=== PATIENT | female | born 1980 | race Caucasian/White ===

== ENCOUNTER 2019-01-06 08:54 | Inpatient (IN) | payer OTHER ==
[2019-01-06] MEDS ORDERED: Water For Irrigation,Sterile 1,000 ML Container IRR PRN (09:23)
[2019-01-06] MEDS ORDERED: Sodium Chloride 0.9% 10 ML Syringe FLUSH PRN (09:23)
[2019-01-06] MEDS ORDERED: Carboprost Tromethamine 250 MCG/1 ML Amp IM PRN (09:23)
[2019-01-06] MEDS ORDERED: Butorphanol 1 MG/ML SDV IVPUSH PRN (09:23)
[2019-01-06] MEDS ORDERED: Sodium Chloride 0.9% 2.5 ML Syringe FLUSH PRN (09:23)
[2019-01-06] MEDS ORDERED: Lidocaine 1% 50 ML MDV INJECT PRN (09:23)
[2019-01-06] MEDS ORDERED: Misoprostol 200 MCG Tab PO PRN (09:23)
[2019-01-06] MEDS ORDERED: Sodium Chloride 0.9% 10 ML SDV IV PRN (09:23)
[2019-01-06] MEDS ORDERED: Tranexamic Acid 1,000 MG in Sodium Chloride 0.9% 100 ML IV PRN (09:23)
[2019-01-06] MEDS ORDERED: Methylergonovine 0.2 MG/1 ML Amp IM PRN (09:23)
[2019-01-06] MEDS ORDERED: Nalbuphine 10 MG/1 ML Vial IVPUSH PRN (09:23)
[2019-01-06] MEDS ORDERED: Oxytocin/0.9 % Sodium Chloride 30 UNIT/500 ML BAG IV SCH (09:30)
[2019-01-06] MEDS: Lactated Ringers 1,000 ML IV SCH ×3 (11:12→12:34)
[2019-01-06] MEDS ORDERED: Ropivacaine HCl/PF 100 ML ONE (12:18)
[2019-01-06] MEDS ORDERED: fentaNYL 100 MCG/2 ML SDV ONE (12:18)
--- NOTE | 2019-01-06 12:38 | PCM.PREANE ---
Preanesthetic Assessment - Anesthesia/Transfusion/Family Hx Anesthesia History: Prior Anesthesia Without Reaction Transfusion History: No Prior Transfusion(s) - Physical Assessment Height: 1.68 m Weight: 97.069 kg ASA Class: 1 Airway Class: Mallampati = 1 ROM/Head Extension: Full - Lab Values: Laboratory Last Values WBC 15.92 K/uL (4.0-11.0) H 01/06/19 09:36 RBC 4.56 M/uL (4.30-5.90) 01/06/19 09:36 Hgb 12.9 g/dL (12.0-16.0) 01/06/19 09:36 Hct 39.8 % (36.0-46.0) 01/06/19 09:36 MCV 87.3 fL (80.0-98.0) 01/06/19 09:36 MCH 28.3 pg (27.0-32.0) 01/06/19 09:36 MCHC 32.4 g/dL (31.0-37.0) 01/06/19 09:36 RDW Std Deviation 48.5 fl (28.0-62.0) 01/06/19 09:36 RDW Coeff of Sylvia 15 % (11.0-15.0) 01/06/19 09:36 Plt Count 206 K/uL (150-400) 01/06/19 09:36 MPV 11.50 fL (7.40-12.00) 01/06/19 09:36 Nucleated RBC % 0.0 /100WBC 01/06/19 09:36 Nucleated RBCs # 0 K/uL 01/06/19 09:36 Blood Type O POSITIVE 01/06/19 09:36 Antibody Screen NEGATIVE 01/06/19 09:36 - Allergies Allergies/Adverse Reactions: Allergies Allergy/AdvReac Type Severity Reaction Status Date / Time Sulfa (Sulfonamide Allergy Hives Verified 01/06/19 09:22 Antibiotics) - Acknowledgements Anesthesia Type Planned: Epidural Pt an Appropriate Candidate for the Planned Anesthesia: Yes Alternatives and Risks of Anesthesia Discussed w Pt/Guardian: Yes Pt/Guardian Understands and Agrees with Anesthesia Plan: Yes PreAnesthesia Questionnaire HEENT History: Reports: Impaired Vision [employer] History: Reports: - Past Surgical History HEENT Surgical History: Reports: None - HOME MEDS Home Medications: Home Meds PNV95/Ferrous Fumarate/FA [ Tablet] 1 each PO 01/06/19 [History] - CURRENT (IN HOUSE) MEDS Current Meds: Current Medications Butorphanol Tartrate (Stadol) 1 mg IVPUSH Q1H PRN PRN Reason: Pain Carboprost Tromethamine (Hemabate Ds) 250 mcg IM ASDIRECTED PRN PRN Reason: Post Hemorrhage Lactated Ringer's (Ringers, Lactated) 1,000 mls @ 150 mls/hr IV ASDIRECTED [facility] Last Admin: 01/06/19 12:34 Dose: 150 mls/hr Oxytocin/Sodium Chloride (Oxytocin 30 Unit/500 Ml-Ns) 30 unit in 500 mls @ 999 mls/hr IV TITRATE [facility] Tranexamic Acid 1,000 mg/ (Sodium Chloride) 110 mls @ 660 mls/hr IV ONETIME PRN PRN Reason: Bleeding Lidocaine HCl (Xylocaine 1%) 50 ml INJECT ONETIME PRN PRN Reason: Laceration repair Methylergonovine Maleate (Methergine) 0.2 mg IM ASDIRECTED PRN PRN Reason: Post Hemorrhage Misoprostol (Cytotec) 200 mcg PO ONETIME PRN PRN Reason: Post Hemorrhage Nalbuphine HCl (Nubain) 10 mg IVPUSH Q1H PRN PRN Reason: Pain (severe 7-10) Sodium Chloride (Saline Flush) 10 ml FLUSH ASDIRECTED PRN PRN Reason: Keep Vein Open Sodium Chloride (Saline Flush) 2.5 ml FLUSH ASDIRECTED PRN PRN Reason: Keep Vein Open Sodium Chloride (Normal Saline) 10 ml IV ASDIRECTED PRN PRN Reason: IV Use Sterile Water (Sterile Water For Irrigation) 1,000 ml IRR ASDIRECTED PRN PRN Reason: delivery Discontinued Medications Fentanyl (Sublimaze) Confirm Administered Dose 100 mcg .ROUTE .STK-MED ONE Stop: 01/06/19 12:19 Ropivacaine (Naropin 0.2%) Confirm Administered Dose 100 mls @ as directed .ROUTE .STK-MED ONE Stop: 01/06/19 12:19
--- NOTE | 2019-01-06 12:44 | PCM.PRNOTE ---
- Free Text/Narrative Note: Anes Note 1220 Patient requests epidural for L&D. Sittting position, level L3-L4 midline approach. Sterile technique, chloraprep scrub to lumbare area. Sterile fenstrated drape applied. Epidural space easily achieved single attempt with ease using TOM technique. TOM at 4 cm. Cath threaded 5 cm with ease. Sterile dressing applied. 1228 Text dose 1230 Load 10 cc 0.2% ropivicaine with 1 mcg cc fentayl in slow divided doses. 1235 Pump started with same solution at 8 cc hr with 6 cc q 20 min prn bolus. Tolerated well Time with patient 1220 1300 Minesh Charlton ADMINISTRATIVE SECRETARY
--- NOTE | 2019-01-06 15:43 | PCM.OPNOTE ---
<Karen Key - Last Filed: 01/06/19 15:47> - General Post-Op/Procedure Note Condition: Good Free Text/Narrative:: Dictation [id number] <Edith Jin - Last Filed: 01/06/19 15:51> - General Post-Op/Procedure Note Date of Surgery/Procedure: 01/06/19 Operative Procedure(s): . Repair of 2nd degree laceration Findings: of liveborn male . Apgars 9/9. Weight pending. 3vc. Placenta intact. Pre Op Diagnosis: 39/4 IUP in labor. 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
[2019-01-06] MEDS ORDERED: Witch Hazel Medicated Pads 40/Jar TOP PRN (15:44)
[2019-01-06] MEDS ORDERED: Ibuprofen 400 MG Tab PO PRN (15:44)
[2019-01-06] MEDS ORDERED: oxyCODONE 5 MG Tab PO PRN (15:44)
[2019-01-06] MEDS ORDERED: Lanolin 100% Cream 7 GM Tube TOP PRN (15:44)
[2019-01-06] MEDS ORDERED: Aluminum Hydroxide/Magnesium Hydroxide/Simethicone Susp 30 ML Cup PO PRN (15:44)
[2019-01-06] MEDS ORDERED: Bisacodyl 10 MG Supp RECTAL PRN (15:44)
[2019-01-06] MEDS ORDERED: Benzocaine/Menthol 20%-0.5% Spray 78 GM Cannister TOP PRN (15:44)
[2019-01-06] MEDS ORDERED: Docusate Sodium 100 MG Cap PO PRN (15:44)
[2019-01-06] MEDS ORDERED: Ondansetron 4 MG/2 ML SDV IVPUSH PRN (15:44)
[2019-01-06] MEDS ORDERED: Acetaminophen 500 MG Tab PO PRN ×2 (15:44)
--- NOTE | 2019-01-06 17:14 | OR ---
SURGEON: Karen Key M.D. DATE OF PROCEDURE: 01/06/2019 PREOPERATIVE DIAGNOSES: 1. 39-4/7 weeks' intrauterine . 2. Active labor. 3. Advanced maternal age. POSTOPERATIVE DIAGNOSES: 1. 39-4/7 weeks' intrauterine . 2. Active labor. 3. Advanced maternal age. PROCEDURE: Spontaneous vaginal delivery, second-degree midline laceration and first degree superficial left vaginal sidewall laceration. PRIMARY SURGEON: Karen Key MD. ANESTHESIA: Epidural. ESTIMATED BLOOD LOSS: 350 mL. COMPLICATIONS: None known. FINDINGS: Viable male. scores 9 at 1 minute and 9 at 5 minutes. Weight is pending. Spontaneous delivery, intact placenta, 3-vessel cord. DISPOSITION: to nursery, mom in LDRP, stable. PROCEDURE DETAILS: Mattie is a 38-year-old, G2, P1, at 39-4/7 weeks' gestational age, who presents on the morning of 01/06/2019 with regular contractions occurring every 3 to 5 minutes. On initial examination, she was found to be 4 to 5 cm, 80% effaced, minus 2 station. Therefore, she was admitted. Routine labs were drawn. IV hydration was initiated. The patient became increasingly uncomfortable, progressed to 5 cm, 90% effaced, minus 2 station. Underwent regional anesthesia in form of epidural. heart tones category 1. She became more comfortable. Shortly after 1 p.m., she underwent amniotomy. Clear fluid was returned. She is group B beta strep negative. heart tones remained category 1. Over the next 2 hours, the patient progressed to complete, 100% effaced and at +2 station. Began pushing efforts, pushed readily to a +4 station. I was called for delivery. Upon my arrival, the patient was placed in modified dorsal lithotomy position, was prepped and draped in the usual aseptic manner. The patient continued with pushing efforts and was able to deliver 's head atraumatically spontaneously, followed by anterior shoulder, posterior shoulder, and remainder of the body without difficulty. was handed off to his mother with attending nursing staff at the side. After a delay, cord was clamped x2 and cut. Cord arterial, cord venous, cord blood sampling obtained. Light pressure was applied while the placenta was delivered spontaneously intact. Vigorous fundal uterine massage was then applied while 30 units of Pitocin was delivered in 500 mL of IV fluid. Upon inspection of cervix, vaginal sidewalls, and perineum, there was found to be a second-degree transverse perineal laceration that extended just to the inside of the introitus. Therefore, this was repaired using 3-0 Vicryl in continuous running locked fashion. There was also a superficial left vaginal laceration repaired with a continuous running fashion. Hemostasis appeared evident at this juncture. Uterus remained firm. Sponge, instrument, and needle count was correct. The patient remained in LDRP, to nursery. BEATA / ROMA /[id number]
[2019-01-06] MEDS: Ibuprofen 800 MG Tab PO PRN (18:58)
[2019-01-07] MEDS: Ibuprofen 800 MG Tab PO PRN ×2 (04:36→18:43)
--- NOTE | 2019-01-07 07:48 | PCM.PNPP ---
<Edith Jin - Last Filed: 01/07/19 07:48> - General Info Date of Service: 01/07/19 Functional Status: Reports: Pain Controlled - Review of Systems General: Reports: No Symptoms. Denies: Fever, Chills HEENT: Reports: No Symptoms. Denies: Headaches Pulmonary: Reports: No Symptoms. Denies: Shortness of Breath Cardiovascular: Reports: No Symptoms. Denies: Chest Pain, Palpitations Gastrointestinal: Reports: Abdominal Pain (mild cramping) Genitourinary: Reports: No Symptoms Musculoskeletal: Reports: No Symptoms Skin: Reports: No Symptoms Neurological: Reports: No Symptoms Psychiatric: Reports: No Symptoms - General Info Date of Service: 01/07/19 - Patient Data Vital Signs - Most Recent: Last Vital Signs Temp 98.0 F 01/07/19 07:19 Pulse 78 01/07/19 07:19 Resp 16 01/07/19 07:19 BP 126/76 01/07/19 07:19 Pulse Ox 97 01/07/19 07:19 Weight - Most Recent: 97.069 kg Lab Results - Last 24 Hours: Laboratory Results - last 24 hr 01/06/19 01/06/19 01/06/19 Range/Units 09:36 09:36 15:19 WBC 15.92 H (4.0-11.0) K/uL RBC 4.56 (4.30-5.90) M/uL Hgb 12.9 (12.0-16.0) g/dL Hct 39.8 (36.0-46.0) % MCV 87.3 (80.0-98.0) fL MCH 28.3 (27.0-32.0) pg MCHC 32.4 (31.0-37.0) g/dL RDW Std Deviation 48.5 (28.0-62.0) fl RDW Coeff of Sylvia 15 (11.0-15.0) % Plt Count 206 (150-400) K/uL MPV 11.50 (7.40-12.00) fL Nucleated RBC % 0.0 /100WBC Nucleated RBCs # 0 K/uL Cord ABG pH 7.205 (7.18-7.38) Cord ABG Base Excess -8 (-10--2) Cord VBG pH 7.315 (7.25-7.45) Cord VBG Base Excess -8 (-10--2) Blood Type O POSITIVE Antibody Screen NEGATIVE 01/07/19 Range/Units 06:08 WBC (4.0-11.0) K/uL RBC (4.30-5.90) M/uL Hgb 10.9 L (12.0-16.0) g/dL Hct 33.7 L (36.0-46.0) % MCV (80.0-98.0) fL MCH (27.0-32.0) pg MCHC (31.0-37.0) g/dL RDW Std Deviation (28.0-62.0) fl RDW Coeff of Sylvia (11.0-15.0) % Plt Count (150-400) K/uL MPV (7.40-12.00) fL Nucleated RBC % /100WBC Nucleated RBCs # K/uL Cord ABG pH (7.18-7.38) Cord ABG Base Excess (-10--2) Cord VBG pH (7.25-7.45) Cord VBG Base Excess (-10--2) Blood Type Antibody Screen Med Orders - Current: Current Medications Acetaminophen (Tylenol Extra Strength) 500 mg PO Q4H PRN PRN Reason: Pain Acetaminophen (Tylenol Extra Strength) 1,000 mg PO Q4H PRN PRN Reason: Pain Al Hydroxide/Mg Hydroxide (Mag-Al Plus) 30 ml PO Q8H PRN PRN Reason: Heartburn Benzocaine/Menthol (Dermoplast Pain Relief 20%-0.5% [place]) 78 gm TOP ASDIRECTED PRN PRN Reason: Perineal Comfort Measure Bisacodyl (Dulcolax) 10 mg RECTAL ONETIME PRN PRN Reason: Constipation Carboprost Tromethamine (Hemabate Ds) 250 mcg IM ASDIRECTED PRN PRN Reason: Post Hemorrhage Docusate Sodium (Colace) 100 mg PO BID PRN PRN Reason: Constipation Emollient Ointment (Lansinoh Hpa) 0 gm TOP ASDIRECTED PRN PRN Reason: Sore Nipples Lactated Ringer's (Ringers, Lactated) 1,000 mls @ 150 mls/hr IV ASDIRECTED [facility] Last Admin: 01/06/19 12:34 Dose: 150 mls/hr Oxytocin/Sodium Chloride (Oxytocin 30 Unit/500 Ml-Ns) 30 unit in 500 mls @ 999 mls/hr IV TITRATE [facility] Last Admin: 01/06/19 15:20 Dose: 999 mls/hr Tranexamic Acid 1,000 mg/ (Sodium Chloride) 110 mls @ 660 mls/hr IV ONETIME PRN PRN Reason: Bleeding Ibuprofen (Motrin) 400 mg PO Q4H PRN PRN Reason: Pain Ibuprofen (Motrin) 800 mg PO Q6H PRN PRN Reason: Pain Last Admin: 01/07/19 04:36 Dose: 800 mg Methylergonovine Maleate (Methergine) 0.2 mg IM ASDIRECTED PRN PRN Reason: Post Hemorrhage Ondansetron HCl (Zofran) 4 mg IVPUSH Q6H PRN PRN Reason: Nausea/Vomiting Oxycodone HCl (Oxycodone) 5 mg PO Q2H PRN PRN Reason: Pain Sodium Chloride (Saline Flush) 10 ml FLUSH ASDIRECTED PRN PRN Reason: Keep Vein Open Sodium Chloride (Saline Flush) 2.5 ml FLUSH ASDIRECTED PRN PRN Reason: Keep Vein Open Sodium Chloride (Normal Saline) 10 ml IV ASDIRECTED PRN PRN Reason: IV Use Sterile Water (Sterile Water For Irrigation) 1,000 ml IRR ASDIRECTED PRN PRN Reason: delivery Witch Gris (Tucks) 1 pad TOP ASDIRECTED PRN PRN Reason: comfort care Discontinued Medications Butorphanol Tartrate (Stadol) 1 mg IVPUSH Q1H PRN PRN Reason: Pain Fentanyl (Sublimaze) Confirm Administered Dose 100 mcg .ROUTE .STK-MED ONE Stop: 01/06/19 12:19 Ropivacaine (Naropin 0.2%) Confirm Administered Dose 100 mls @ as directed .ROUTE .STK-MED ONE Stop: 01/06/19 12:19 Lidocaine HCl (Xylocaine 1%) 50 ml INJECT ONETIME PRN PRN Reason: Laceration repair Misoprostol (Cytotec) 200 mcg PO ONETIME PRN PRN Reason: Post Hemorrhage Nalbuphine HCl (Nubain) 10 mg IVPUSH Q1H PRN PRN Reason: Pain (severe 7-10) - Infant Interaction Disposition, : in Room with Family Infant Interaction: Holding Infant Feeding: Attempted ; Nursed Fair/Poor (difficulty with latch ) Support Person: , Mother - Recovery Exam Fundal Tone: Firm Fundal Level: 1 Fingerbreadths Below Umbilicus Fundal Placement: Midline Lochia Amount: Small Lochia Color: Rubra/Red Perineum Description: Edematous Episiotomy/Laceration: Approximated Bladder Status: Voiding Urinary Elimination: Voided - Exam General: Alert, Oriented HEENT: Pupils Equal Neck: Supple Lungs: Clear to Auscultation, Normal Respiratory Effort Cardiovascular: Regular Rate, Regular Rhythm GI/Abdominal Exam: Normal Bowel Sounds, Soft, Non-Tender, No Organomegaly, No Distention, No Abnormal Bruit, No Mass, Pelvis Stable Extremities: Normal Inspection, Normal Range of Motion, Non-Tender, No Pedal Edema, Normal Capillary Refill Skin: Warm, Dry, Intact Neurological: No New Focal Deficit Psy/Mental Status: Alert, Normal Affect, Normal Mood - Problem List & Annotations (1) Normal vaginal delivery SNOMED Code(s): 27799245, 906513019 Code(s): O80 - ENCOUNTER FOR FULL-TERM UNCOMPLICATED DELIVERY Status: Acute Current Visit: Yes - Problem List Review Problem List Initiated/Reviewed/Updated: Yes - Assessment Assessment:: PPD1 s/p with repair of 2nd degree laceration Difficulty with latch when Pain well controlled Minimal lochia rub Would like to discharge home today - Plan Plan:: Regular diet Pain control PRN Routine cares Anticipate discharge PPD1-2 <Lisa Dale - Last Filed: 01/07/19 08:51> - Patient Data Vital Signs - Most Recent: Last Vital Signs Temp 36.7 C 01/07/19 07:19 Pulse 78 01/07/19 07:19 Resp 16 01/07/19 07:19 BP 126/76 01/07/19 07:19 Pulse Ox 97 01/07/19 07:19 Lab Results - Last 24 Hours: Laboratory Results - last 24 hr 01/06/19 01/06/19 01/06/19 Range/Units 09:36 09:36 15:19 WBC 15.92 H (4.0-11.0) K/uL RBC 4.56 (4.30-5.90) M/uL Hgb 12.9 (12.0-16.0) g/dL Hct 39.8 (36.0-46.0) % MCV 87.3 (80.0-98.0) fL MCH 28.3 (27.0-32.0) pg MCHC 32.4 (31.0-37.0) g/dL RDW Std Deviation 48.5 (28.0-62.0) fl RDW Coeff of Sylvia 15 (11.0-15.0) % Plt Count 206 (150-400) K/uL MPV 11.50 (7.40-12.00) fL Nucleated RBC % 0.0 /100WBC Nucleated RBCs # 0 K/uL Cord ABG pH 7.205 (7.18-7.38) Cord ABG Base Excess -8 (-10--2) Cord VBG pH 7.315 (7.25-7.45) Cord VBG Base Excess -8 (-10--2) Blood Type O POSITIVE Antibody Screen NEGATIVE 01/07/19 Range/Units 06:08 WBC (4.0-11.0) K/uL RBC (4.30-5.90) M/uL Hgb 10.9 L (12.0-16.0) g/dL Hct 33.7 L (36.0-46.0) % MCV (80.0-98.0) fL MCH (27.0-32.0) pg MCHC (31.0-37.0) g/dL RDW Std Deviation (28.0-62.0) fl RDW Coeff of Sylvia (11.0-15.0) % Plt Count (150-400) K/uL MPV (7.40-12.00) fL Nucleated RBC % /100WBC Nucleated RBCs # K/uL Cord ABG pH (7.18-7.38) Cord ABG Base Excess (-10--2) Cord VBG pH (7.25-7.45) Cord VBG Base Excess (-10--2) Blood Type Antibody Screen Med Orders - Current: Current Medications Acetaminophen (Tylenol Extra Strength) 500 mg PO Q4H PRN PRN Reason: Pain Acetaminophen (Tylenol Extra Strength) 1,000 mg PO Q4H PRN PRN Reason: Pain Al Hydroxide/Mg Hydroxide (Mag-Al Plus) 30 ml PO Q8H PRN PRN Reason: Heartburn Benzocaine/Menthol (Dermoplast Pain Relief 20%-0.5% [place]) 78 gm TOP ASDIRECTED PRN PRN Reason: Perineal Comfort Measure Bisacodyl (Dulcolax) 10 mg RECTAL ONETIME PRN PRN Reason: Constipation Carboprost Tromethamine (Hemabate Ds) 250 mcg IM ASDIRECTED PRN PRN Reason: Post Hemorrhage Docusate Sodium (Colace) 100 mg PO BID PRN PRN Reason: Constipation Emollient Ointment (Lansinoh Hpa) 0 gm TOP ASDIRECTED PRN PRN Reason: Sore Nipples Lactated Ringer's (Ringers, Lactated) 1,000 mls @ 150 mls/hr IV ASDIRECTED [facility] Last Admin: 01/06/19 12:34 Dose: 150 mls/hr Oxytocin/Sodium Chloride (Oxytocin 30 Unit/500 Ml-Ns) 30 unit in 500 mls @ 999 mls/hr IV TITRATE [facility] Last Admin: 01/06/19 15:20 Dose: 999 mls/hr Tranexamic Acid 1,000 mg/ (Sodium Chloride) 110 mls @ 660 mls/hr IV ONETIME PRN PRN Reason: Bleeding Ibuprofen (Motrin) 400 mg PO Q4H PRN PRN Reason: Pain Ibuprofen (Motrin) 800 mg PO Q6H PRN PRN Reason: Pain Last Admin: 01/07/19 04:36 Dose: 800 mg Methylergonovine Maleate (Methergine) 0.2 mg IM ASDIRECTED PRN PRN Reason: Post Hemorrhage Ondansetron HCl (Zofran) 4 mg IVPUSH Q6H PRN PRN Reason: Nausea/Vomiting Oxycodone HCl (Oxycodone) 5 mg PO Q2H PRN PRN Reason: Pain Sodium Chloride (Saline Flush) 10 ml FLUSH ASDIRECTED PRN PRN Reason: Keep Vein Open Sodium Chloride (Saline Flush) 2.5 ml FLUSH ASDIRECTED PRN PRN Reason: Keep Vein Open Sodium Chloride (Normal Saline) 10 ml IV ASDIRECTED PRN PRN Reason: IV Use Sterile Water (Sterile Water For Irrigation) 1,000 ml IRR ASDIRECTED PRN PRN Reason: delivery Enmanuel Landry (Tucks) 1 pad TOP ASDIRECTED PRN PRN Reason: comfort care Discontinued Medications Butorphanol Tartrate (Stadol) 1 mg IVPUSH Q1H PRN PRN Reason: Pain Fentanyl (Sublimaze) Confirm Administered Dose 100 mcg .ROUTE .STK-MED ONE Stop: 01/06/19 12:19 Ropivacaine (Naropin 0.2%) Confirm Administered Dose 100 mls @ as directed .ROUTE .STK-MED ONE Stop: 01/06/19 12:19 Lidocaine HCl (Xylocaine 1%) 50 ml INJECT ONETIME PRN PRN Reason: Laceration repair Misoprostol (Cytotec) 200 mcg PO ONETIME PRN PRN Reason: Post Hemorrhage Nalbuphine HCl (Nubain) 10 mg IVPUSH Q1H PRN PRN Reason: Pain (severe 7-10) - Problem List & Annotations (1) Normal vaginal delivery SNOMED Code(s): 80327123, 730818157 Code(s): O80 - ENCOUNTER FOR FULL-TERM UNCOMPLICATED DELIVERY Status: Acute Current Visit: Yes - Assessment Assessment:: Difficulty with latching but want to go home today - Plan Plan:: Will reassess in the evening for discharge
== END 2019-01-07 18:57 | disposition home or self-care (01) | DRG 807 ==
LOC: MW.OB 08:54 → MW.OBCHECK 08:54 → MW.OB 09:23 → MW.OBCHECK 13:17 → OBSVTOIN 15:44 → MW.OB 19:39
PROVIDERS: ADMIT Obstetrics & Gynecology; ATTEND Obstetrics & Gynecology
PROC: 10E0XZZ Delivery of Products of Conception, External Approach (ICD-10-PCS; principal; 2019-01-06)
PROC: 10907ZC Drainage of Amniotic Fluid, Therapeutic from Products of Conception, Via Natural or Artificial Opening (ICD-10-PCS; 2019-01-06)
PROC: 0KQM0ZZ Repair Perineum Muscle, Open Approach (ICD-10-PCS; 2019-01-06)
DX: O70.1 Second degree perineal laceration during delivery (principal); Z37.0 Single live birth; Z3A.39 39 weeks gestation of pregnancy; Z88.2 Allergy status to sulfonamides
CPT/HCPCS: 01967; 36415; 59025; 59409; 82803; 85014; 85018; 85027; 86850; 86900; 86901; A9270-GY; J2590; J2795; J3010; J7120

== ENCOUNTER 2020-08-13 21:38 | Emergency (ER) | payer MEDICARE, OTHER ==
[2020-08-13] MEDS ORDERED: methylPREDNISolone Sodium Succinate 125 MG/2 ML SDV IVPUSH STA (22:06)
[2020-08-13] MEDS ORDERED: diphenhydrAMINE 50 MG/ML SDV IVPUSH ONE (22:07)
[2020-08-13] MEDS ORDERED: Famotidine 20 MG/2 ML SDV IVPUSH ONE (22:07)
[2020-08-13] MEDS ORDERED: predniSONE 10 MG Tab PO ONE (23:13)
--- NOTE | 2020-08-13 23:15 | EDM.PDOC ---
ED HPI GENERAL MEDICAL PROBLEM - General Chief Complaint: Allergic Reaction Stated Complaint: HIVES ON HANDS AND NECK Time Seen by Provider: 08/13/20 22:05 - History of Present Illness INITIAL COMMENTS - FREE TEXT/NARRATIVE: HISTORY AND PHYSICAL: History of present illness: This is a 40-year-old female who presents ER today secondary to hives throughout her entire body that started yesterday. Patient reports that she has taken a total of 10 25 mg tablets of Benadryl since yesterday afternoon and reports that her rash has been worsening. Patient denies any recent fevers, shakes, chills, nausea, vomiting, diarrhea, dysuria, frequency, urgency, chest pain, shortness of breath. Patient reports no swelling in her throat or difficulty breathing. Patient denies any tongue swelling. Patient is unclear as to the allergen and reports that this is happened to her twice in the past. She reports the first time he was identified to sulfa as an allergy. The second time she reports they were not able to identify the allergen. Patient denies any new allergens such as soaps, detergents, clothes, pets, environmental outdoor agents, perfumes, foods, meds, [id number] meds. Patient denies any abdominal pain or diarrh ea. Review of systems: As per history of present illness and below otherwise all systems reviewed and negative. Past medical history: As per history of present illness and as reviewed below otherwise noncontributory. Surgical history: As per history of present illness and as reviewed below otherwise noncontributory. Social history: No reported history of drug or alcohol abuse. Family history: As per history of present illness and as reviewed below otherwise noncontributory. Physical exam: This patient was seen and evaluated during the 2019 SARS-CoV-2 novel coronavirus pandemic period. Community viral transmission is ongoing at time of this encounter and the emergency department is operating under pandemic response procedures. Constitutional: Patient is oriented to person, place, and time. Appears well- developed and well-nourished. No distress. HEENT: Moist mucous membranes Head: Normocephalic and atraumatic Eyes: Right eye exhibits no discharge. Left eye exhibits no discharge. No scleral icterus Neck: Normal range of motion. No tracheal deviation present. Cardiovascular: Normal rate and regular rhythm. Pulmonary: Effort normal, no respiratory distress. Abdominal: No distention Musculoskeletal: Normal range of motion Neurologic: Alert and oriented to person, place and time. Skin: [place], warm and dry. Psychiatric: Normal mood and affect. Behavior is normal. Judgment and thought content normal. Nursing note and vital signs have been reviewed Patient's ER physical exam significant for clear lungs without any wheezing rales or rhonchi. Patient's oropharynx is clear without any tongue edema, uvular edema, pharyngeal edema. Patient does have hives throughout her entire body in her upper and lower extremities. Patient has hives to her torso and back. Patient is resting comfortably and appears to be in no acute respiratory distress. Therapeutics: Solu-Medrol, Pepcid, Benadryl IV Prednisone 50 mg p.o. Assessment and plan: This is a 40-year-old female who presents to the ER today secondary to hives of unclear etiology. Patient has been given Solu-Medrol, Pepcid, Benadryl here in the ED and reports that she does feel much improved as far as her itching. Patient still has a rash on her arms and torso but she reports it has definitely improved. Patient be given a dose of prednisone prior to discharge will be given a prescription for prednisone, Pepcid and Benadryl to take. I have instructed the patient to write down a diary of everything that she is coming to contact with over the last 2 days so that she can cross reference in the future. At this time, the patient is not exhibiting any evidence of any airway compromise or angioedema. Patient stable for discharge. I will discharge patient home with a EpiPen with instructions to use only if she has a bad reaction. Reassessment at the time of disposition demonstrates that the patient is in no acute distress. The patient has remained stable throughout the entire ED visit and is without objective evidence for acute process requiring urgent intervention or hospitalization. The patient is stable for discharge, counseling is provided as documented above, discussed symptomatic treatment and specific conditions for return. I have spoken with the patient/caregiver and discussed todays findings, in addition to providing specific details for the plan of care. Questions are answered and there is agreement with the plan. Definitive disposition and diagnosis as appropriate pending reevaluation and review of above. - Related Data Allergies Allergy/AdvReac Type Severity Reaction Status Date / Time Sulfa (Sulfonamide Allergy Hives Verified 08/13/20 22:00 Antibiotics) Home Meds: Home Meds EPINEPHrine [Epipen] 0.3 mg IJ ASDIRECTED PRN #1 pen 08/13/20 [Rx] Famotidine [Pepcid] 20 mg PO BID #10 tab 08/13/20 [Rx] diphenhydrAMINE [Benadryl] 50 mg PO Q6HR PRN #20 cap 08/13/20 [Rx] predniSONE [Prednisone] 50 mg PO DAILY #5 tablet 08/13/20 [Rx] Past Medical History HEENT History: Reports: Impaired Vision [employer]IL [employer] History: Reports: - Past Surgical History HEENT Surgical History: Reports: None Social & Family History - Family History Family Medical History: No Pertinent Family History OBGYN: Reports: - Caffeine Use Caffeine Use: Reports: Coffee, Tea - Recreational Drug Use Recreational Drug Use: No ED ROS ALLERGIC REACTION - Review of Systems Review Of Systems: See Below ED EXAM GENERAL NO PERIP PULSE - Physical Exam Exam: See Below Course - Vital Signs Last Recorded V/S: Last Vital Signs Temp 98.8 F 08/13/20 22:01 Pulse 106 H 08/13/20 22:01 Resp 18 08/13/20 22:01 BP 139/85 08/13/20 22:01 Pulse Ox 97 08/13/20 22:01 - Orders/Labs/Meds Meds: Medications Discontinued Medications Generic Name Dose Route Start Last Admin Trade Name Jeffq PRN Reason Stop Dose Admin Diphenhydramine HCl 50 mg 08/13/20 22:07 08/13/20 22:22 Diphenhydramine 50 Mg/Ml Sdv IVPUSH 08/13/20 22:08 50 mg ONETIME ONE Administration Famotidine 20 mg 08/13/20 22:07 08/13/20 22:22 Famotidine 20 Mg/2 Ml Sdv IVPUSH 08/13/20 22:08 20 mg ONETIME ONE Administration Methylprednisolone Sodium Succinate 125 mg 08/13/20 22:06 08/13/20 22:22 Methylprednisolone Sodium Succinate 125 Mg/2 Ml Sdv IVPUSH 08/13/20 22:07 125 mg DAILY STA Administration Departure - Departure Time of Disposition: 23:14 Disposition: Home, Self-Care 01 Condition: Good Clinical Impression: Hives Allergic reaction Qualifiers: Encounter type: initial encounter Qualified Code(s): T78.40XA - Allergy, unspecified, initial encounter - Discharge Information Instructions: Hives, Allergies, Adult, [id number] Referrals: PCP,None [Primary Care Provider] - Additional Instructions: You were seen and evaluated in the ER today secondary to an allergic reaction of unclear etiology. Please maintain a diary of the last 2 days of everything that you have, no contact with sick and more cross-referenced in the future if this should happen again. You will be given a prescription for Benadryl, prednisone, Pepcid to take over the next several days to assist with your rash. You will also be given a prescription for an EpiPen autoinjector to utilize if you start having a severe reaction that involves your breathing. If you ever need to use the EpiPen autoinjector you must come to the ER for evaluation. Please make an appointment to see your family doctor in the next 1 to 2 days for reevaluation possible referral for an housing director. The following information is given to patients seen in the emergency department who are being discharged to home. This information is to outline your options for follow-up care. We provide all patients seen in our emergency department with a follow-up referral. The need for follow-up, as well as the timing and circumstances, are variable depending upon the specifics of your emergency department visit. If you don't have a primary care physician on staff, we will provide you with a referral. We always advise you to contact your personal physician following an emergency department visit to inform them of the circumstance of the visit and for follow-up with them and/or the need for any referrals to a consulting specialist. The emergency department will also refer you to a specialist when appropriate. This referral assures that you have the opportunity for follow-up care with a specialist. All of these measure are taken in an effort to provide you with optimal care, which includes your follow-up. Under all circumstances we always encourage you to contact your private physician who remains a resource for coordinating your care. When calling for follow-up care, please make the office aware that this follow-up is from your recent emergency room visit. If for any reason you are refused follow-up, please contact the [facility] Emergency Department at and asked to speak to the emergency department charge nurse. [facility] - [facility] [address] [place] [id number] [address] [address] Sepsis Event Note (ED) - Evaluation Sepsis Screening Result: No Definite Risk - Focused Exam Vital Signs: Vital Signs Temp Pulse Resp BP Pulse Ox 08/13/20 22:01 98.8 F 106 H 18 139/85 97
[2020-08-13] MEDS ORDERED: predniSONE 10 MG Tab ONE (23:27)
== END 2020-08-13 23:32 | disposition home or self-care (01) ==
LOC: MW.ED 21:38
DX: L50.0 Allergic urticaria (principal); Z88.2 Allergy status to sulfonamides
CPT/HCPCS: 96374; 96375; 99283; A9270; J1200; J2930; J3490; 99282

== ENCOUNTER 2021-08-12 14:27 | Emergency (ER) | payer SELFPAY ==
[2021-08-12] MEDS ORDERED: Sodium Chloride 0.9% 10 ML Syringe FLUSH PRN (14:30)
[2021-08-12] MEDS ORDERED: Sodium Chloride 0.9% 2.5 ML Syringe FLUSH PRN (14:30)
[2021-08-12 15:29] LABS: BLOOD UREA NITROGEN,BUN 16 mg/dL (7.0-18.0); CARBON DIOXIDE,CO2 23.3 mmol/L (21.0-32.0); CHLORIDE,CL 101 mmol/L (98-107); GLUCOSE RANDOM 102 mg/dL (74-106); LIPASE 69 U/L (73-393); POTASSIUM,K 3.3 mmol/L (3.5-5.1); SODIUM,NA 137 mmol/L (136-145)
[2021-08-12] MEDS ORDERED: Potassium Chloride 20 MEQ Tab.ER PO ONE (18:18)
== END 2021-08-12 18:50 | disposition home or self-care (01) ==
LOC: MW.ED 14:27
DX: R07.9 Chest pain, unspecified (principal); M62.838 Other muscle spasm; Z88.2 Allergy status to sulfonamides
CPT/HCPCS: 36415; 71045; 80053; 83690; 84484; 85025; 85610; 93005; 99285; A9270